=== PATIENT | male | born 1960 | race African-American/Black ===

== ENCOUNTER 2018-06-30 06:34 | Day surgery (SDC) | payer OTHER ==
[2018-06-30 07:55] LABS: INTERNATIONAL RATION (INR) 1.16; PROTHROMBIN TIME 15.4 SEC (11.4-15.4)
[2018-06-30 07:56] LABS: PARTIAL THROMBOPLASTIN TIME 36.9 SEC (23.5-35.8)
--- NOTE | 2018-06-30 10:27 | EKG REPORT ---
SEVERITY:- ABNORMAL ECG - ATRIAL FIBRILLATION, V-RATE 82-138 ABNORMAL T, CONSIDER ISCHEMIA, LATERAL LEADS : Confirmed by: Mariel Urban MD 30-Jun-2018 10:27:07
[2018-06-30] MEDS ORDERED: PROPOFOL INJ 200 MG/20 ML VIAL IV ONE (10:32)
--- NOTE | 2018-06-30 12:45 | Operative Report ---
Operative Report DATE OF SURGERY: 06/30/18 Operative Report: The risks, benefits and alternatives of the procedure including the risks of bleeding, perforation requiring surgery are explained to the patient in detail and informed consent is obtained. Patient was taken to the operating room and placed in the left, lateral decubital position. Timeout was called. Propofol medication is administered. A rectal examination is done which did not reveal any masses, tears or fissures. An Olympus videoscope was inserted into the patient's rectum. The scope was then carefully advanced all the way to the cecum. Cecum was identified by the usual anatomical landmarks including the ileocecal valve as well as appendiceal office. Prep is poor. Solid fecal material is seen. Scope was then sequentially pulled back via the rest segments of the colon including the ascending colon, hepatic flexure, transverse colon, splenic flexure, descending colon and finally into the rectosigmoid portions of the colon. Retroflexion maneuver is performed. PREOPERATIVE DIAGNOSIS: Colorectal cancer screening POSTOPERATIVE DIAGNOSIS: Ascending colon polyp was removed via biopsy forceps. Internal hemorrhoids OPERATION: Colonoscopy with biopsy SURGEON: ABBEY JOSEPH ANESTHESIA: LMAC TISSUE REMOVED OR ALTERED: As noted above. COMPLICATIONS: None. ESTIMATED BLOOD LOSS: None. INTRAOPERATIVE FINDINGS: As noted above. PROCEDURE: Patient tolerated the procedure well. No immediate postprocedure complications are noted. Patient discharged in good condition. Discharge date 06/30/2018. Discharge diet: Regular. Discharge activity: Regular. 2-3 week follow-up to discuss findings. 3-5 year surveillance colonoscopy. Patient is instructed call the office or proceed to the emergency room should there be any further problems or questions. Wait on the pathology.
[2018-06-30 12:52] VITALS: BP 129/90
== END 2018-06-30 12:10 | disposition home or self-care (01) ==
LOC: OROUT 06:34
PROVIDERS: ATTEND Internal Medicine Gastroenterology
DX: Z12.11 Encounter for screening for malignant neoplasm of colon (principal); D12.2 Benign neoplasm of ascending colon; K64.8 Other hemorrhoids; I10 Essential (primary) hypertension; I48.91 Unspecified atrial fibrillation; E78.5 Hyperlipidemia, unspecified; I25.10 Atherosclerotic heart disease of native coronary artery without angina pectoris; Z79.01 Long term (current) use of anticoagulants; Z79.899 Other long term (current) drug therapy; Z79.82 Long term (current) use of aspirin
CPT/HCPCS: 45380; 36415; 84132; 85610; 85730; 88305 ×2; 93005; 93010; J2704; 811